=== PATIENT | male | born 1985 | race Caucasian/White ===

== ENCOUNTER 2021-10-17 08:17 | Outpatient (REF) | payer OTHER, SELFPAY ==
[2021-10-17 12:24] LABS: Alanine Aminotransferase 19 U/L (0-40); Albumin Level 4.2 g/dL (3.5-5.0); Alkaline Phosphatase 86 U/L (39-117); Anion Gap 12 (12-20); Aspartate Amino Transferase 14 U/L (5-37); Bilirubin Total 0.8 mg/dL (0.0-1.0); Blood Urea Nitrogen 7 mg/dL (9-16); Carbon Dioxide 25 mmol/L (22-29); Chloride 104 mmol/L (96-108); Cholesterol 128 mg/dL; Estimated Glomerular Filt Rate > 60; Glucose Fasting 101 mg/dL (60-99); HDL Cholesterol 28 mg/dL; LDL Cholesterol Calculated 72 mg/dl; Sodium 137 mmol/L (135-145); TSH reflex Free T4 2.31 uIU/mL (0.32-4.0); Total Protein 7.3 g/dL (6.5-8.0); Triglycerides 142 mg/dL
== END 2021-10-17 08:18 | disposition home or self-care (01) ==
LOC: HO.HMGCLDS 08:17
PROVIDERS: PCP Nurse Practitioner Family; Visit Provider Nurse Practitioner Family
DX: Z00.00 Encounter for general adult medical examination without abnormal findings (principal)
CPT/HCPCS: 36415; 80053; 80061; 84443

== ENCOUNTER 2022-01-02 12:48 | Emergency (ER) | payer OTHER, SELFPAY ==
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
[2022-01-02 13:07] VITALS: BP 136/80; PULSE 113; O2SAT 99
[2022-01-02 13:59] VITALS: BP 138/85; PULSE 113; RESP 18; TEMP 37.2; O2SAT 98; BMI 32.8
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
[2022-01-02] MEDS: Ibuprofen 600 MG TABLET PO (15:47)
[2022-01-02] MEDS: Diphth,Pertus(ACell),Tet Adult 0.5 ML SYRINGE IM (15:48)
== END 2022-01-02 16:09 | disposition home or self-care (01) ==
PROVIDERS: Emergency Provider Emergency Medicine; PCP Nurse Practitioner Family
DX: S60.221A Contusion of right hand, initial encounter (principal); S60.511A Abrasion of right hand, initial encounter; V47.5XXA Car driver injured in collision with fixed or stationary object in traffic accident, initial encounter; Y93.89 Activity, other specified; Y92.411 Interstate highway as the place of occurrence of the external cause; Y99.8 Other external cause status
CPT/HCPCS: 73110; 73130; 90471; 90715; 99284

== ENCOUNTER 2023-08-05 15:33 | Outpatient (AMB) | payer OTHER, SELFPAY ==
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
[2023-08-05 16:32] VITALS: BP 118/76; PULSE 68; O2SAT 98; BMI 23.9
== END 2023-08-06 15:12 | disposition home or self-care (01) ==
LOC: HO.HMGC 15:33
PROVIDERS: PCP Nurse Practitioner Family; Visit Provider Nurse Practitioner Family
DX: Z00.00 Encounter for general adult medical examination without abnormal findings (principal); F41.9 Anxiety disorder, unspecified; F32.A Depression, unspecified
CPT/HCPCS: 96127; 99395

== ENCOUNTER 2024-06-02 09:30 | Emergency (ER) | payer OTHER, SELFPAY ==
--- NOTE | ~2024-06-02 | CT_ITS ---
EXAMINATION: CT ANGIOGRAM OF THE CHEST WITH AND WITHOUT CONTRAST (CT PULMONARY ANGIOGRAM FOR PE) CLINICAL INFORMATION: chest pain, leg swelling COMPARISON: No pertinent prior studies are available for comparison. TECHNIQUE: Prior to contrast administration, noncontrast localization images were obtained. Subsequently, multidetector volumetric imaging was performed from the thoracic inlet to the pubic symphysis through the chest, abdomen, and pelvis following the administration of 70 mL Omnipaque 350 intravenous contrast. No contrast reaction reported Sagittal, coronal, and MIP oblique sagittal (through the chest only) reformatted images were obtained on the CT workstation, uploaded to PACS, and reviewed. This CT examination was performed using dose optimization techniques as appropriate, variously including the following: *Automated exposure control *Adjustment of mA and/or kV according to patient size (this includes techniques or standardized protocols for targeted exams where dose is matched to indication/reason for exam; i.e. extremities or head) *Use of iterative reconstruction technique Total exam dose-length product: 342 mGy-cm FINDINGS: QUALITY OF STUDY/CONTRAST BOLUS: Suboptimal. PULMONARY ARTERIES: No central or segmental pulmonary emboli. THORACIC AORTA: No aneurysm or dissection. LUNG: A few tiny micronodules are seen, none larger than 3 mm (see bello images) No focal consolidation or concerning nodules/masses. PLEURA: No pleural effusion or pneumothorax. MEDIASTINUM: Normal heart size. No pericardial effusion. No hilar or mediastinal lymphadenopathy. No evidence of septal bowing or right heart strain. CHEST WALL/AXILLA: No axillary or internal mammary lymphadenopathy. OSSEOUS STRUCTURES: No acute or suspicious osseous abnormality. VISUALIZED ABDOMEN: There is a small hiatal hernia. The spleen is enlarged. The liver is likely enlarged as well although cannot be assessed. Small hiatal hernia is present. No reflux of contrast into the IVC to suggest elevated right heart pressure. CT/CT angio chest PE protocol IMPRESSION: 1. No evidence of pulmonary emboli. Study is somewhat limited secondary to poor bolus. 2. VTE: negative. 3. A few tiny micronodules are seen, none larger than 3 mm (see bello images) No focal consolidation or concerning nodules/masses. Fleischner guidelines were followed. Electronically signed by: Miki Sutton MD 06/02/2024 01:42 PM EDT
--- NOTE | 2024-06-02 09:36 | ECG_ITS ---
Test Reason : chest pain Blood Pressure : / mmHG Vent. Rate : 096 BPM Atrial Rate : 096 BPM P-R Int : 152 ms QRS Dur : 092 ms QT Int : 346 ms P-R-T Axes : -02 -01 008 degrees QTc Int : 437 ms Normal sinus rhythm Cannot rule out Inferior infarct , age undetermined Abnormal ECG No previous ECGs available Referred By: Luisa Saba Electronically Signed By:BETH ALCANTAR
--- NOTE | 2024-06-02 09:41 | ED.CHESTPAIN ---
HPI - Chest Pain General Chief Complaint: Chest Pain Stated Complaint: CP X30 MIN,SOB PER EMS Source: patient and EMS Mode of arrival: EMS Limitations: no limitations History of Present Illness ED Provider: GHAZAL HPI narrative: 39 yo male with PMH of GERD, IVDA abuse last used 2 weeks ago on 120mg methadone daily did self dose today, [facility], states he has a spinal cyst unsure where that no one can treat or correct after seeing multiple specialist, leg swelling but no hx of DVT though told EMS he had a history of blood clots, anxiety and depression who comes in with c/o paroxysmal episodes of chest pain and his lungs deflate. He notes this started two days ago at rest. He gets severe sternal chest pain and then he cannot breathe. EMS states the story was all over the place but they felt his O2 sat was 85% so they put him on NRB we took him off and he was 100% on RA. The patient denies cough, fevers, chills, sick contacts. He states this has never happened before. MD complaint: chest pain Onset (ago): day(s) (2) Timing of current episode: episodic Prior episodes: No Onset: during rest Pain location: substernal Pain radiation: none Severity: severe Quality: tightness Relieving factors: nothing Exacerbating factors: movement and stress Context: recent immobilization (states he doesn't move much because of his spinal cyst but wears compressive stockings) Associated symptoms: dyspnea and sense of impending doom Treatment prior to arrival: oxygen Related Data Home Medications ?Medication ?Instructions ?Recorded ?Confirmed methadone .Route 08/05/23 08/05/23 sildenafil 100 mg tablet (Viagra) 100 mg PO DAILY PRN 08/05/23 08/05/23 Previous Rx's ?Medication ?Instructions ?Recorded ibuprofen 800 mg tablet 800 mg PO Q8H PRN pain #14 tabs 01/02/22 alprazolam 1 mg tablet 1 mg PO BID PRN anxiety 30 days 04/05/24 #60 tabs pantoprazole 40 mg tablet,delayed 40 mg PO DAILY 90 days #90 tabs 05/11/24 release Allergies Allergy/AdvReac Type Severity Reaction Status Date / Time No Known Allergies Allergy Verified 06/02/24 09:45 [No Known Allergies*] Review of Systems Review of Systems: Constitutional : No Weight loss, No Fever, No Chills ENT/Mouth : No sore throat, No Rhinorrhea Eyes: No Eye Pain, No Swelling Cardiovascular : pos Chest Pain, pos SOB, no Dyspnea on Exertion, No Orthopnea, No Edema, No Palpitations Respiratory : No Cough, No Sputum Gastrointestinal : pos Nausea, No Vomiting, No Diarrhea, No abdominal Pain, No Hematochezia, No Melena Genitourinary : No Dysuria, No Urinary Frequency Musculoskeletal : No joint pain, No Myalgias, No Joint Swelling Skin : No Skin Lesions, No rash Neuro : No Weakness, No Numbness, No Dizziness, No Headache Psych : pos Anxiety/Panic, No Depression Heme/Lymph: No Bruising, No Lymphadenopathy Endocrine : No Polyuria, No Polydipsia All other systems reviewed and are negative [facility] Past Medical History Attestation statement: The following information was validated with the patient. Source: old records reviewed Medical History Anxiety and depression Methadone dependence Back pain Surgical History H/O right wrist surgery S/P correction of deviated nasal septum History of appendectomy Family History Family History Father No problems noted. Mother Anxiety Fibromyalgia Social History Social History Housing: Apartment Patient Tobacco Use Status: Former Tobacco user e-Cigarette/Vaping Use: Never Used Advance Directives: No Advance Directives Information Provided: Yes Do you have a plan to hurt others: No Plan service: Yes Current occupational status: unemployed Cognitive needs: No Hearing needs: No Vision needs: No Physical Exam Vital Signs: Vital Signs: Last Vital Signs Temp 97.9 F 06/02/24 09:55 Pulse 97 06/02/24 09:55 Resp 15 06/02/24 09:55 BP 133/85 06/02/24 09:55 Pulse Ox 98 06/02/24 09:55 O2 Del Method Room Air 06/02/24 09:55 BMI result Body Mass Index 33.7 Appearance: Alert. Oriented X3. Mild acute distress. Hyperventilating, very anxious Eyes: Pupils equal, round and reactive to light. ENT: Pharynx normal. Neck: Normal inspection. Neck supple. CVS: Normal heart rate and rhythm. Pulses normal. Respiratory: No respiratory distress. Breath sounds normal. Abdomen: Soft and nontender. Skin: Skin warm and dry. Normal skin color. Normal skin turgor. Extremities: No lower extremity edema. No calf ttp Neuro: Oriented X 3. No motor deficit. No sensory deficit. Medications Administered Discontinued Medications Generic Name Dose Route Start Last Admin Trade Name Freq PRN Reason Stop Dose Admin Iohexol 65 ml 06/02/24 12:03 06/02/24 12:04 Iohexol 350 Mg/Ml 100 Ml Infus..Btl IV 06/02/24 12:04 65 ml ONCE ONE Administration Lorazepam 2 mg 06/02/24 09:36 06/02/24 09:52 Lorazepam 2 Mg/Ml Vial IVPUSH 06/02/24 09:37 2 mg ONCE ONE Administration Medical Decision Making Medical Decision Making [facility] Narrative: 39 yo male with PMH of GERD, IVDA abuse last used 2 weeks ago on 120mg methadone daily did self dose today, [facility], states he has a spinal cyst here with c/o anxiety, dyspnea, chest pain - he has no ACS risk factors, he is PERC negative but given sedentary lifestyle CTA ordered, IV ativan for severe anxiety he is not hypoxic here. At this time troponin x 2, EKG, inflammatory markers for infection ordered though no fevers, cough atypical for endocarditis, CTA for VTE Differential Diagnosis Differential Diagnoses: The differential diagnosis associated with the presentation includes anxiety, VTE, MSK pain Admission/Observation Consideration of admission/observation: Escalation of care including admission/observation considered CTA neg for PE/dissection trop neg x 2 resolved with ativan stable for DC Lab Data [facility] Lab Attestation statement: I reviewed the patient's lab results. 06/02/24 09:50 06/02/24 10:44 Labs: Lab Results 06/02/24 06/02/24 06/02/24 Range/Units 09:49 09:50 10:44 WBC 5.5 (4.8-10.8) X10*3/uL RBC 6.11 H (4.60-5.80) X10*6/uL Hgb 13.6 L (14.0-18.0) g/dl Hct 43.5 (42.0-52.0) % MCV 71.2 L (80.0-98.0) fL MCH 22.3 L (27.0-33.0) pg MCHC 31.3 (31.0-36.0) g/dl RDW 20.1 H (11.0-16.0) % Plt Count 277 (160-400) X10*3/uL MPV 9.0 L (9.4-12.4) fL Immature Gran % (Auto) 0.2 (0.0-0.4) % Neut % (Auto) 71.3 (45-73) % Lymph % (Auto) 19.1 L (20-40) % Gregory % (Auto) 6.9 (2-11) % Eos % (Auto) 2.0 (0-4) % Baso % (Auto) 0.5 (0-2) % Lymph # (Auto) 1.1 L (1.2-4.9) X10*3/uL Gregory # (Auto) 0.4 (0.1-1.2) X10*3/uL Eos # (Auto) 0.1 (0.0-0.4) X10*3/uL Baso # (Auto) 0.0 (0.0-0.2) X10*3/uL Abs Immat Gran (auto) 0.01 (0.00-0.03) X10*3/uL Absolute Neuts (auto) 3.9 (2.0-8.3) x10*3/uL Absolute Nucleated RBC 0.000 (0.0-0.012) X10*3/uL Nucleated RBC % (auto) 0.0 (0.0-0.2) /100WBC ESR 1 (0-15) MM/HR Sodium 138 (135-145) mmol/L Potassium 3.8 (3.3-5.1) mmol/L Chloride 106 (96-108) mmol/L Carbon Dioxide 26 (22-29) mmol/L Anion Gap 9 L (12-20) BUN 7 L (9-16) mg/dL Creatinine 1.16 (0.5-1.4) mg/dL Estim Creat Clear Calc 117.2 Estimated GFR > 60 Random Glucose 106 (60-115) mg/dL Calcium 9.4 (8.4-10.2) mg/dL Magnesium 1.9 (1.6-2.6) mg/dL Total Bilirubin 0.9 (0.0-1.0) mg/dL Direct Bilirubin 0.3 (0.0-0.5) mg/dL AST 15 (5-37) U/L ALT 19 (0-40) U/L Alkaline Phosphatase 81 (39-117) U/L Troponin I High Sens < 2.7 (<3.5-35.0) ng/L C-Reactive Protein 0.29 (< or = 0.50) mg/dL B-Natriuretic Peptide < 10 (<100) pg/mL Total Protein 7.1 (6.5-8.0) g/dL Albumin 4.2 (3.5-5.0) g/dL 06/02/24 Range/Units 12:58 WBC (4.8-10.8) X10*3/uL RBC (4.60-5.80) X10*6/uL Hgb (14.0-18.0) g/dl Hct (42.0-52.0) % MCV (80.0-98.0) fL MCH (27.0-33.0) pg MCHC (31.0-36.0) g/dl RDW (11.0-16.0) % Plt Count (160-400) X10*3/uL MPV (9.4-12.4) fL Immature Gran % (Auto) (0.0-0.4) % Neut % (Auto) (45-73) % Lymph % (Auto) (20-40) % Gregory % (Auto) (2-11) % Eos % (Auto) (0-4) % Baso % (Auto) (0-2) % Lymph # (Auto) (1.2-4.9) X10*3/uL Gregory # (Auto) (0.1-1.2) X10*3/uL Eos # (Auto) (0.0-0.4) X10*3/uL Baso # (Auto) (0.0-0.2) X10*3/uL Abs Immat Gran (auto) (0.00-0.03) X10*3/uL Absolute Neuts (auto) (2.0-8.3) x10*3/uL Absolute Nucleated RBC (0.0-0.012) X10*3/uL Nucleated RBC % (auto) (0.0-0.2) /100WBC ESR (0-15) MM/HR Sodium (135-145) mmol/L Potassium (3.3-5.1) mmol/L Chloride (96-108) mmol/L Carbon Dioxide (22-29) mmol/L Anion Gap (12-20) BUN (9-16) mg/dL Creatinine (0.5-1.4) mg/dL Estim Creat Clear Calc Estimated GFR Random Glucose (60-115) mg/dL Calcium (8.4-10.2) mg/dL Magnesium (1.6-2.6) mg/dL Total Bilirubin (0.0-1.0) mg/dL Direct Bilirubin (0.0-0.5) mg/dL AST (5-37) U/L ALT (0-40) U/L Alkaline Phosphatase (39-117) U/L Troponin I High Sens < 2.7 (<3.5-35.0) ng/L C-Reactive Protein (< or = 0.50) mg/dL B-Natriuretic Peptide (<100) pg/mL Total Protein (6.5-8.0) g/dL Albumin (3.5-5.0) g/dL Independent Interpretation I performed an independent interpretation of an: EKG and CT Scan (no dissection/VTE) Interpretation: Rate: 96 Rhythm: NSR [place]: left Normal P waves. Normal [place]. Normal QRS complex. ST T wave : normal no JAMEE qTC: 437 prior studies: no acute ischemia The study has been interpreted contemporaneously by me. . Radiology Impression Discussion of test interpretation with radiology: I have reviewed the radiologist's reading. Independent Historian Clinical information obtained from an independent historian. History obtained from or confirmed by: EMS External Record Review External record reviewed: Office record Critical Care Time Critical Care Time Critical Care Time: Yes Total Critical Care Time: 35 Attestation: IV ativan, repeat assessment I attest to this time spent taking care of the patient Discharge Plan Discharge Clinical Impression: Atypical chest pain, Acute anxiety Patient Disposition: Home, Self-Care Instructions: Chest Pain (ED), Anxiety (ED) Additional Instructions: labs reassuring today heart tests negative today x 2 no blood clot, no tearing of aorta work up negative for pneumonia please follow up with your doctor - micronodules repeat CT scan in 1 year return for any worsening symptoms or concerns CT/CT angio chest PE protocol IMPRESSION: 1. No evidence of pulmonary emboli. Study is somewhat limited secondary to poor bolus. 2. VTE: negative. 3. A few tiny micronodules are seen, none larger than 3 mm (see bello images) No focal consolidation or concerning nodules/masses Prescriptions: No Action alprazolam 1 mg tablet 1 mg PO BID PRN (Reason: anxiety) 30 Days Qty: 60 1RF pantoprazole 40 mg tablet,delayed release (DR/EC) 40 mg PO DAILY 90 Days Qty: 90 1RF ibuprofen 800 mg tablet 800 mg PO Q8H PRN (Reason: pain) Qty: 14 0RF methadone 120 mg .Route Rx Instructions: per pt sildenafil [Viagra] 100 mg tablet 100 mg PO DAILY PRN Rx Instructions: administer 30 minutes to 4 hours before activity Print Language: Kinyarwanda
[2024-06-02 09:43] VITALS: BP 132/84; BP 133/73; PULSE 92; PULSE 94; RESP 16; TEMP 36.6; O2SAT 94; O2SAT 95; BMI 33.7
[2024-06-02] MEDS: LORazepam 2 MG/ML VIAL IVPUSH (09:52)
[2024-06-02 09:55] VITALS: BP 133/85; PULSE 97; RESP 15; TEMP 36.6; O2SAT 98
[2024-06-02 09:55] LABS: MANUAL DIFF FLAG NO
[2024-06-02 09:56] LABS: Basophils Percent Auto 0.5 % (0-2); Eosinophils Absolute Auto 0.1 X10*3/uL (0.0-0.4); Hematocrit 43.5 % (42.0-52.0); Hemoglobin 13.6 g/dl (14.0-18.0); Imm Gran Abs Auto 0.01 X10*3/uL (0.00-0.03); Imm Gran Pct Auto 0.2 % (0.0-0.4); Lymphocytes Absolute Auto 1.1 X10*3/uL (1.2-4.9); Lymphocytes Percent Auto 19.1 % (20-40); Mean Corpuscular HGB Conc 31.3 g/dl (31.0-36.0); Mean Corpuscular Hemoglobin 22.3 pg (27.0-33.0); Mean Corpuscular Volume 71.2 fL (80.0-98.0); Monocytes Absolute Auto 0.4 X10*3/uL (0.1-1.2); Monocytes Percent Auto 6.9 % (2-11); Neutrophils Absolute Auto 3.9 x10*3/uL (2.0-8.3); Neutrophils Percent Auto 71.3 % (45-73); Platelet Count 277 X10*3/uL (160-400); Red Blood Count 6.11 X10*6/uL (4.60-5.80); Red Cell Distribution Width 20.1 % (11.0-16.0); White Blood Count 5.5 X10*3/uL (4.8-10.8)
[2024-06-02 10:22] LABS: Troponin-I High Sensitivity < 2.7 ng/L (<3.5-35.0)
[2024-06-02 10:25] LABS: B Type Natriuretic Peptide < 10 pg/mL (<100)
[2024-06-02 10:35] LABS: Erythrocyte Sedimentation Rate 1 MM/HR (0-15)
--- NOTE | 2024-06-02 10:50 | PC.NURSE ---
Pt BIBA from home for sudden onset of CP/SOB. Per pt he has a hx of these episodes. Per EMS pt desat to 80%, upon arrival 95% RA. Upon arrival pt hyperventilating and tachycardic on monitoring engineer, HR increased to 140s. 20g IV placed in right ac, 2mg IV Ativan given. Hyperventilation and tachycardia has since resolved. Pt HR on monitor 80-85. Pt verbalizes decrease in pain/anxiousness. A/ox4, lung sounds cta bilaterally, no increased wob/sob since ativan given, s1 and s2 heard, NSR on the monitoring engineer, abdomen soft, non-tender. Vital signs updated, plan for CT of chest, call brush within reach, all needs met at this time.
[2024-06-02 11:21] LABS: Alanine Aminotransferase 19 U/L (0-40); Albumin Level 4.2 g/dL (3.5-5.0); Alkaline Phosphatase 81 U/L (39-117); Anion Gap 9 (12-20); Aspartate Amino Transferase 15 U/L (5-37); Bilirubin Direct 0.3 mg/dL (0.0-0.5); Bilirubin Total 0.9 mg/dL (0.0-1.0); Blood Urea Nitrogen 7 mg/dL (9-16); C Reactive Protein 0.29 mg/dL (< or = 0.50); Calcium 9.4 mg/dL (8.4-10.2); Carbon Dioxide 26 mmol/L (22-29); Chloride 106 mmol/L (96-108); Creatinine Clr Calc Pharmacy 117.2; Estimated Glomerular Filt Rate > 60; Glucose Random 106 mg/dL (60-115); Magnesium 1.9 mg/dL (1.6-2.6); Potassium 3.8 mmol/L (3.3-5.1); Sodium 138 mmol/L (135-145); Total Protein 7.1 g/dL (6.5-8.0)
[2024-06-02] MEDS: iohexoL 350 MG/ML 100 ML INFUS..BTL 65 ML IV (12:04)
[2024-06-02 13:34] LABS: Troponin-I High Sensitivity < 2.7 ng/L (<3.5-35.0)
[2024-06-02 14:37] VITALS: BP 133/80; PULSE 84; RESP 20; TEMP 36.6; O2SAT 98
== END 2024-06-02 14:37 | disposition home or self-care (01) ==
PROVIDERS: Emergency Provider Emergency Medicine; PCP Nurse Practitioner Family
DX: R07.89 Other chest pain (principal); R06.02 Shortness of breath; R60.0 Localized edema; R94.31 Abnormal electrocardiogram [ECG] [EKG]; F41.1 Generalized anxiety disorder; Z79.899 Other long term (current) drug therapy
CPT/HCPCS: 36415; 71275; 80048; 80076; 83735; 83880; 84484; 85025; 85652; 86140; 93005; 96374; 99284; 99285; J2060; Q9967

== ENCOUNTER 2024-09-27 10:22 | Outpatient (AMB) | payer OTHER, SELFPAY ==
[2024-09-27 10:28] VITALS: BP 130/78; PULSE 72; O2SAT 94; BMI 34.4
--- NOTE | 2024-09-27 10:28 | A.OFFPC_ITS ---
Vital Signs 09/27/24 10:28 Height 6 ft 2 in Weight 268 lb BMI 34.4 BP 130/78 Blood Pressure Location Lt brachial Position Sitting Pulse 72 Pulse Source Pulse Oximeter Pulse Oximetry (%) 94 Oxygen Delivery Method Room Air Intake Visit Reasons: Annual PE Allergies No Known Allergies [No Known Allergies*] Allergy (Verified 09/27/24 10:29) Medication List - Last Reconciled 09/27/24 by CADENCE Burns- alprazolam 1 mg PO BID PRN 30 days [methadone per pt ] pantoprazole 40 mg PO DAILY 90 days sildenafil (Viagra) 100 mg PO DAILY PRN Tobacco use date assessed: 09/27/24 Dental Screening Dental Screen Date: 09/27/24 Did you have a dental visit in the last 12 months?: Yes Did you have a dental problem in the last 6 months where you did not have access to dental care?: No Was dental information given to patient?: Patient has dentist HPI Annual PE HPI Details History of Present Illness The patient is a 39-year-old male presenting with increased anxiety. The anxiety has worsened, potentially due to a lapse in his alprazolam medication, which he has been out of for several days. He regularly [facility] up with the [facility] and has a therapist, but not a psychiatrist. There is a recent increase in anxiety and depression; however, the patient denies any suicidal or homicidal ideation. Additionally, he has upper right quadrant abdominal discomfort, [facility] which [facility] and [facility], hepatic steatosis, and a slightly enlarged spleen. Pulmonary nodules have also been observed, with ongoing follow- up through [facility], according to pt. He also is seen at the methadone clinic. There is no tenderness noted in the abdomen currently, according to the physical exam ination. Health Maintenance - Patient refuses flu vaccination - Plans to obtain fasting labs in the [facility] future Social History - Seen regularly at the [facility] - Refuses flu vaccination Review of Systems - General: Denies chest pain, denial of shortness of breath - Abdominal: Reports right upper quadran t discomfort Physical Exam General: Cooperative, healthy appearing, comfortable, no acute distress and well developed Orientation: Patient oriented x3 Limitations: No limitations Head: Normal to inspection Ears: Hearing grossly normal bilaterally Nose: Slight abrasion to the bridge of his nose Face and sinus: Normal facial exam Eyes: Appearance normal, both eyes and all related structures Neck: Normal visual inspection and Yes full ROM Respiratory: Normal respiratory effort and able to speak in complete sentences. Clear to auscultation bilaterally Cardiovascular: Regular rate and rhythm. Normal S1 and S2 GI: Normal to inspection. Soft to palpation and nontender. Reports abdominal discomfort in the right upper quadrant, with known gallstones, fatty liver, and slightly enlarged spleen Skin: No rashes or lesions noted Neuro: Patient oriented x3 Extremities: Normal to inspection Results Plan - Prescribe alprazolam refill today to a ddress the increased anxiety symptomatology. - Monitor anxiety and depression closely with ongoing therapy sessions; consider evaluation by a psychiatrist if symptoms persist or worsen. - Continue surveillance of gallstones, f atty liver, enlarged spleen, and pulmonary nodules through [facility] follow-[facility]. - Encourage the patient to complete fast ing labs as planned for further assessment. Patient was informed and verbally consented to the use of an ambient scribe for clinic note documentation during this visit. Discussion Notes I discussed with the patient the management of anxiety by ensuring that he resumes his alprazolam prescription today. We reviewed the importance of maintaining regular therapy sessions and considered referral to a psychiatrist should his symptoms not improve. I explained the necessity of monitoring his abdominal and pulmonary issues with the [facility], including the identified gallstones, fatty liver, enlarged spleen, and pulmonary nodules. We talked about the future fasting labs to assess general health markers. The patient was advised of the benefits of flu vaccination, but he declined. We also confirmed no current suicidal or homicidal thoughts were present. Patient Instructions - Take the prescribed alprazolam as dire cted. - Continue regular therapy sessions for anxiety and depression. - Follow up for regular assessments with the [facility]. - Complete the fasting labs that [facility] has planned. - Monitor abdominal symptoms and seek ca re if they worsen. - Return if experiencing any concerning new symptoms such as chest pain or shortness of breath. [facility] Medical History (Updated 09/27/24 @ 10:50 by BOB Burns) PTSD (post-traumatic stress disorder) Anxiety and depression Methadone dependence Back pain Surgical History H/O right wrist surgery S/P correction of deviated nasal septum History of appendectomy Family History Father No problems noted. Mother Anxiety Fibromyalgia Social History Housing: Apartment Patient Tobacco Use Status: Former Tobacco user e-Cigarette/Vaping Use: Never Used service: Yes Current occupational status: unemployed Cognitive needs: No Hearing needs: No Vision needs: No Questionnaire PHQ-9 Over the last 2 weeks, how often have you been bothered by any of the following problems? 1. Little interest or pleasure in doing things: more than half the days 2. Feeling down, depressed, or hopeless: more than half the days 3. Trouble falling or staying asleep, or sleeping too much: more than half the days 4. Feeling tired or having little energy: more than half the days 5. Poor appetite or overeating: several days 6. Feeling bad about yourself - or that you are a failure or have let yourself or your family down: several days 7. Trouble concentrating on things, such as reading the newspaper or watching television: not at all 8. Moving or speaking so slowly that other people could have noticed. Or the opposite - being so fidgety or restless that you have been moving around a lot more than usual: not at all 9. Thoughts that you would be better off or of hurting yourself in some way: not at all Total score: 10 Depression Screening Interpretation: Positive (denies any si or hi) Depression Screening Follow-up: Existing condition and In treatment Depression Screening Done: Yes 14864 - PHQ-9 Billing: Yes Source: Developed by Drs. Hang Wilson, Corazon Rajput, Hemant Mccurdy and colleagues, with an educational ana from [facility]. Thrive Questionnaire Date Thrive assessed: 09/27/24 I am a: Patient What is your living situation today?: I have a steady place to live Within the past 12 months, did the food you bought not last and you didn't have the money to get more?: Sometimes True Within the past 12 months, did you worry whether your food would run out before you got money to buy more?: Sometimes True Do you have trouble paying for medicines?: No Do you have trouble getting transportation to medical appointments?: No Do you have trouble paying your heating and electricity bill?: No Do you have trouble taking care of your child, family member or friend?: No Do you have trouble with day-to-day activities such as bathing, preparing meals, shopping, managing finances, etc.?: I choose not to answer this question Are you currently unemployed and looking for a job?: Yes Are you interested in more education?: I choose not to answer this question Please select the resources that you would like help with: None Currently or been in a relationship where the following occur: No concerns reported THRIVE Score: 2 AUDIT C Alcohol Use Questionnaire (AUDIT-C) 1. How often do you have a drink containing alcohol?: Never 3. How often do you have six or more drinks on one occasion?: Never Total Score: 0 Score Reviewed/Action Taken: Yes HOLDEN-7 AMB Questionnaire HOLDEN-7 Date HOLDEN - 7 assessed: 09/27/24 Feeling nervous, anxious, or on edge: 3 = Nearly every day Not being able to stop or control worryin = Nearly every day Worrying too much about different things: 3 = Nearly every day Trouble relaxin = Nearly every day Being so restless that it is hard to sit still: 3 = Nearly every day Becoming easily annoyed or irritable: 3 = Nearly every day Feeling afraid as if something awful might happen: 3 = Nearly every day Total HOLDEN-7 score (0-4 normal; 5-9 mild; 10-14 moderate; 15-21 severe): 21 Source: Developed by Drs. Hang Wilson, Corazon Rajput, Hemant Mccurdy and colleagues, with an educational ana from [facility]. HOLDEN-7 Assessment Billing HOLDEN-7 Assessment Tool: HOLDEN-7 Assessment 37764 (has a therapist, needs a refill of his alprazolam, denies any si or hi) Physical exam (Primary Care) Vital Signs: Last Vital Signs Pulse 72 09/27/24 10:28 BP 130/78 09/27/24 10:28 Pulse Ox 94 09/27/24 10:28 Oxygen Delivery Method Room Air 09/27/24 10:28 BMI result Body Mass Index 34.4 Tobacco/Smoking Status: Tobacco use Status Tobacco use date assessed 09/27/24 09/27/24 10:31 Patient Tobacco Use Status Former Tobacco user 09/27/24 10:31 e-Cigarette/Vaping Use Never Used 09/27/24 10:31 PHQ-9: PHQ-9 Score PHQ-9: Total score 10 09/27/24 10:31 Depression Screening Interpretation: Positive (denies any si or hi) Depression Screening Follow-up: Existing condition and In treatment Thrive Assessment: Date of Thrive Assessment Date Thrive assessed 09/27/24 09/27/24 10:31 Currently or been in a relationship where the following occur: No concerns reported Coding Level of Care Code Est Pt Prev Care 18-39y(07722) Diagnoses Physical exam Z00.00 Anxiety and depression F41.9; F32.A Additional Codes PHQ-9 - 20569 - PHQ-9 Billing: Yes ([id number]) HOLDEN-7 Assessment Billing - HOLDEN-7 Assessment Tool: HOLDEN-7 Assessment 12772 ([id number]) Assessment & Plan Assessment & Plan (1) Physical exam: Code(s): Z00.00 - Encounter for general adult medical examination without abnormal findings Category: Medical (2) Anxiety and depression: Code(s): F41.9 - Anxiety disorder, unspecified; F32.A - Depression, unspecified Category: Medical Plan . Orders: Orders UA CC w/rflx Micro + Cult Today Z00.00 - Encounter for general adult medical examination without abnormal findings Complete Blood Count Auto Diff Today Z00.00 - Encounter for general adult medical examination without abnormal findings Comprehensive Remlap. Panel Fast Today Z00.00 - Encounter for general adult me dical examination without abnormal findings TSH reflex Free T4 Today Z00.00 - Encounter for general adult medical examination without abnormal findings Lipid Panel Today Z00.00 - Encounter for general adult medical examination without abnormal findings Medications: Refilled 2 alprazolam 1 mg PO BID PRN 60 tabs 4RF anxiety 30 days
== END 2024-09-27 10:54 | disposition home or self-care (01) ==
PROVIDERS: PCP Nurse Practitioner Family; Visit Provider Nurse Practitioner Family
DX: Z00.00 Encounter for general adult medical examination without abnormal findings (principal); F41.9 Anxiety disorder, unspecified; F32.A Depression, unspecified

== ENCOUNTER → 2024-09-27 10:22 | Outpatient (BNVA) | payer OTHER, SELFPAY | PROVIDERS: PCP Nurse Practitioner Family; Visit Provider Nurse Practitioner Family | DX: Z00.00 Encounter for general adult medical examination without abnormal findings (principal); F41.9 Anxiety disorder, unspecified; F32.A Depression, unspecified | CPT/HCPCS: 96127 ==

== ENCOUNTER 2024-10-13 14:22 | Inpatient (IN) | payer OTHER, SELFPAY ==
--- NOTE | ~2024-10-13 | US_ITS ---
EXAMINATION: US ABDOMEN LIMITED CLINICAL INFORMATION: Right upper quadrant pain. Known gallstones. COMPARISON: None available. TECHNIQUE: Real-time imaging of the right upper quadrant abdominal viscera. FINDINGS: PANCREAS: Visualized portions are unremarkable. LIVER: The liver is normal in size. The liver contour is normal. There is diffuse increased liver parenchymal echogenicity, consistent with hepatic steatosis. No focal hepatic lesion. There is no intrahepatic biliary duct dilatation seen. GALLBLADDER: The gallbladder is distended. There are numerous intraluminal mobile gallstones. No significant wall thickening or pericholecystic fluid seen. Patient reported a positive sonographic Cerna's sign as per the technologist note. COMMON BILE DUCT: Normal in caliber measuring 0.2 cm in diameter. RIGHT KIDNEY: No hydronephrosis. No renal calculi or focal parenchymal lesions. The kidney measures 13.4 cm in maximum dimension. FREE FLUID: None. US/US abdomen limited IMPRESSION: 1. Distended gallbladder with intraluminal mobile gallstones. No wall thickening or pericholecystic fluid. The patient did report a positive sonographic Cerna sign as per the technologist note. Findings are equivocal for acute cholecystitis. 2. Echogenic liver suggesting hepatic steatosis. No focal lesion. 3. No biliary dilatation. Electronically signed by: Andres Morgan MD 10/13/2024 04:[address] [facility]
[2024-10-13 14:31] VITALS: BP 124/76; PULSE 101; RESP 20; TEMP 36.8; O2SAT 98; BMI 35.4
--- NOTE | 2024-10-13 14:37 | ED_ITS ---
HPI - Abdominal Pain General Chief Complaint: Abdominal Pain Stated Complaint: Out pt resp Time Seen by Provider: 10/13/24 14:34 Source: patient, RN notes reviewed and old records reviewed Mode of arrival: ambulatory History of Present Illness ED Provider: Meg Ward PA-C HPI narrative: 39-year-old male with a past medical history PTSD, anxiety, depression, methadone dependence, gallstones, presenting to the ED complaining of sudden onset RUQ abdominal pain, nausea, and diaphoresis. Pain described as stabbing with radiation to back. Admits symptoms are similar to prior/known gallstones. [facility] and is scheduled for [facility] consult in November. Denies vomiting, fever, dysuria/hematuria Related Data Home Medications ?Medication ?Instructions ?Recorded ?Confirmed methadone .Route 08/05/23 09/27/24 sildenafil 100 mg tablet (Viagra) 100 mg PO DAILY PRN 08/05/23 09/27/24 Previous Rx's ?Medication ?Instructions ?Recorded pantoprazole 40 mg tablet,delayed 40 mg PO DAILY 90 days #90 tabs 05/11/24 release alprazolam 1 mg tablet 1 mg PO BID PRN anxiety 30 days 09/27/24 #60 tabs Allergies Allergy/AdvReac Type Severity Reaction Status Date / Time No Known Allergies Allergy Verified 10/13/24 14:33 [No Known Allergies*] Review of Systems Review of Systems Yes all other systems are reviewed and are negative Constitutional: Reports as per [facility] Past Medical History Attestation statement: The following information was validated with the patient. Source: old records reviewed Medical History PTSD (post-traumatic stress disorder) Anxiety and depression Methadone dependence Back pain Surgical History H/O right wrist surgery S/P correction of deviated nasal septum History of appendectomy Family History Family History Father No problems noted. Mother Anxiety Fibromyalgia Social History Social History Housing: Apartment Patient Tobacco Use Status: Former Tobacco user Smoked in Last 30 Days: No e-Cigarette/Vaping Use: Never Used Use of substances other than those prescribed or required for medical reasons: No Advance Directives: No Advance Directives Information Provided: Yes service: Yes Current occupational status: unemployed Cognitive needs: No Hearing needs: No Vision needs: No Physical Exam ED Vital Signs: Vital Signs - 24 hr 10/13/24 14:31 Temperature 98.2 F Pulse Rate 101 H Respiratory Rate 20 Blood Pressure 124/76 Pulse Oximetry 98 Oxygen Delivery Method Room Air BMI result Body Mass Index 35.4 Const Other: Diaphoretic, appears uncomfortable General: cooperative and no acute distress Orientation/consciousness: patient oriented x3 Limitations: no limitations HENMT Head: Yes normal to inspection and Yes atraumatic Ears: hearing grossly normal bilaterally General nose exam: Normal external nose present Face and sinus: Yes normal facial exam Eyes General: appearance normal, both eyes and all related structures EOM: EOMs intact bilaterally Neck Neck: Yes normal visual inspection and Yes no meningeal signs Resp Effort & Inspection: normal respiratory effort and no respiratory distress Auscultation: clear to auscultation bilaterally Cardio Rate: regular rate Heart sounds: S1 normal heart sound present and S2 normal heart sound present GI Inspection: Yes normal to inspection Palpation (GI): Soft to palpation, Tenderness to palpation present (GI) in the epigastrum, in the RUQ and at McBurney's point, no guarding and not rigid General: Yes CVA tenderness on the right Back/Spine/Pelvis Back: CVA tenderness Skin Rashes: no rashes Wounds: no wounds Neuro General: patient oriented x3, tone normal and no meningeal signs Cranial nerves: Yes CN's II-XII intact bilaterally Gait exam (Neuro): Normal gait present Extrem General: Yes normal to inspection Course Course Course Narrative: -no leukocytosis, H/H stable. Potassium mildly elevated to 5.3, slightly hemolyzed -AST 59 -1630--ED care transferred to [facility] pending ultrasound, UA, and dispo per results. Anticipate admission Reevaluation(s) Reevaluation #1: Patient received in sign-out at change of shift pending ultrasound and disposition. The patient's ultrasound has a positive Cerna's sign but no definitive evidence of cholecystitis. I discussed with Dr. Whitfield, surgery. Plan for OR tomorrow. He will admit the patient Time: 17:16 Medical Decision Making Medical Decision Making MDM Narrative: 39-year-old male with a past medical history PTSD, anxiety, depression, methadone dependence, gallstones, presenting to the ED complaining of sudden onset RUQ abdominal pain, nausea, and diaphoresis. On exam tachycardic likely from pain, appears uncomfortable, diaphoretic, abdomen soft with epigastric/RUQ and right CVAT. Concern for acute cholecystitis vs gallstones/biliary colic vs pancreatitis. Lower suspicion for acute ACS or dissection at this time. Lower suspicion for acute appendicitis/diverticulitis Plan: Labs, UA, ultrasound, IVF, pain control, re-evaluate. Low suspicion for severe sepsis at this time Please refer to course for remaining clinical decision making, interpretation of labs/imaging results, and discussions with consultants and/or family members. Differential Diagnosis Differential Diagnoses: The differential diagnosis associated with the presentation includes As above Admission/Observation Consideration of admission/observation: Escalation of care including admission/observation considered Lab Data [facility] Lab Attestation statement: I reviewed the patient's lab results. 10/13/24 14:51 10/13/24 14:51 Labs: Lab Results 10/13/24 10/13/24 Range/Units 14:51 16:29 WBC 7.6 (4.8-10.8) X10*3/uL RBC 6.34 H (4.60-5.80) X10*6/uL Hgb 13.7 L (14.0-18.0) g/dl Hct 44.9 (42.0-52.0) % MCV 70.8 L (80.0-98.0) fL MCH 21.6 L (27.0-33.0) pg MCHC 30.5 L (31.0-36.0) g/dl RDW 21.0 H (11.0-16.0) % Plt Count 313 (160-400) X10*3/uL MPV 9.6 (9.4-12.4) fL Immature Gran % (Auto) 0.3 (0.0-0.4) % Neut % (Auto) 71.5 (45-73) % Lymph % (Auto) 21.2 (20-40) % [place] % (Auto) 6.0 (2-11) % Eos % (Auto) 0.5 (0-4) % Baso % (Auto) 0.5 (0-2) % Lymph # (Auto) 1.6 (1.2-4.9) X10*3/uL [place] # (Auto) 0.5 (0.1-1.2) X10*3/uL Eos # (Auto) 0.0 (0.0-0.4) X10*3/uL Baso # (Auto) 0.0 (0.0-0.2) X10*3/uL Abs Immat Gran (auto) 0.02 (0.00-0.03) X10*3/uL Absolute Neuts (auto) 5.4 (2.0-8.3) x10*3/uL Absolute Nucleated RBC 0.000 (0.0-0.012) X10*3/uL Nucleated RBC % (auto) 0.0 (0.0-0.2) /100WBC PT 14.2 H (10.9-12.4) SEC INR 1.2 H (0.9-1.1) Sodium 141 (135-145) mmol/L Potassium 5.3 H D (3.3-5.1) mmol/L Chloride 108 (96-108) mmol/L Carbon Dioxide 25 (22-29) mmol/L Anion Gap 13 (12-20) BUN 8 L (9-16) mg/dL Creatinine 1.35 (0.5-1.4) mg/dL Estim Creat Clear Calc 103.2 Estimated GFR 59 Random Glucose 90 (60-115) mg/dL Calcium 9.5 (8.4-10.2) mg/dL Magnesium 2.2 (1.6-2.6) mg/dL Total Bilirubin 0.7 (0.0-1.0) mg/dL Direct Bilirubin 0.2 (0.0-0.5) mg/dL AST 59 H (5-37) U/L ALT 31 (0-40) U/L Alkaline Phosphatase 88 (39-117) U/L Total Protein 8.9 H (6.5-8.0) g/dL Albumin 4.5 (3.5-5.0) g/dL Lipase 10 (8-78) U/L Urine Color Dark Yellow Urine Appearance Clear Urine pH 6.0 (5.0-9.0) Ur Specific [place] 1.025 (1.005-1.025) Urine Protein 30 (1+) H (Neg-Trace) mg/dL Urine Glucose (UA) Negative (Negative) mg/dL Urine Ketones 15 (Negative) mg/dL Urine Blood Negative (Negative) Urine Nitrite Negative (Negative) Ur Leukocyte Esterase Negative (Negative) Urine RBC 0-2 (0-2) /HPF Urine WBC 0-5 (0-5) /HPF Ur Squamous Epith Cells 0-2 (0-2) /HPF Urine Bacteria None Seen (None Seen) Hyaline Casts 11-20 (0-2) /LPF Independent Interpretation I performed an independent interpretation of an: EKG (My interpretation EKG normal sinus rhythm rate of 84. MO interval 166. No significant change when compared to prior. No STEMI. ) and Ultrasound Radiology Impression Discussion of test interpretation with radiology: I have reviewed the radiologist's reading. External Record Review External record reviewed: Inpatient record, Office record, Outpatient record, Prior outpatient labs, Prior outpatient radiology, Primary care record and Outside ED record Tests considered The following testing was considered but not selected: As above Prescription Management I considered prescription management with: Pain Medication and Antibiotic Chronic Conditions Patient?s care impacted by: Other Social Determinants Patient?s care significantly limited by Social Determinants of Health including: Alcoholism and drug addiction in family and Other Social Determinant of Health Medications Administered Discontinued Medications Generic Name Dose Route Start Last Admin Trade Name Freq PRN Reason Stop Dose Admin Sodium Chloride 1,000 mls @ 999 mls/hr 10/13/24 14:45 10/13/24 16:27 Ns IV 10/13/24 15:45 Infused .Q1H1M KIM Infusion Morphine Sulfate 4 mg 10/13/24 14:42 10/13/24 14:56 Morphine Sulfate 4 Mg/Ml Cartridge IVPUSH 10/13/24 14:43 4 mg ONCE ONE Administration Protocol Morphine Sulfate 4 mg 10/13/24 15:43 10/13/24 16:34 Morphine Sulfate 4 Mg/Ml Cartridge IVPUSH 10/13/24 15:44 4 mg ONCE ONE Administration Protocol Ondansetron HCl 4 mg 10/13/24 14:42 10/13/24 14:54 Ondansetron Hcl 4 Mg/2 Ml Vial IVPUSH 10/13/24 14:43 4 mg ONCE ONE Administration Discharge Plan Discharge Clinical Impression: Abdominal pain, RUQ, Symptomatic cholelithiasis Patient Disposition: Admitted As Inpatient Prescriptions: No Action pantoprazole 40 mg tablet,delayed release (DR/EC) 40 mg PO DAILY 90 Days Qty: 90 1RF methadone 120 mg .Route Rx Instructions: per pt sildenafil [Viagra] 100 mg tablet 100 mg PO DAILY PRN Rx Instructions: administer 30 minutes to 4 hours before activity alprazolam 1 mg tablet 1 mg PO BID PRN (Reason: anxiety) 30 Days Qty: 60 4RF Print Language: French
--- NOTE | 2024-10-13 14:42 | ECG_ITS ---
Test Reason : CHEST PAIN Blood Pressure : */* mmHG Vent. Rate : 84 BPM Atrial Rate : 84 BPM P-R Int : 166 ms QRS Dur : 100 ms QT Int : 384 ms P-R-T Axes : 22 -12 8 degrees QTcB Int : 453 ms Normal sinus rhythm with sinus arrhythmia Normal ECG When compared with ECG of 02-Jun-2024 09:37, No significant change was found Referred By: Meg Ward Electronically Signed By: RADHA FRANCO
[2024-10-13] MEDS: 0.9 % Sodium Chloride 1,000 ML 999 ML IV (14:54)
[2024-10-13] MEDS: ondansetron HCL 4 MG/2 ML VIAL IVPUSH ×2 (14:54→23:04)
[2024-10-13 14:56] LABS: MANUAL DIFF FLAG NO
[2024-10-13] MEDS: Morphine Sulfate 4 MG/ML CARTRIDGE IVPUSH ×2 (14:56→16:34)
[2024-10-13 14:59] LABS: Basophils Percent Auto 0.5 % (0-2); Eosinophils Percent Auto 0.5 % (0-4); Hematocrit 44.9 % (42.0-52.0); Hemoglobin 13.7 g/dl (14.0-18.0); Imm Gran Abs Auto 0.02 X10*3/uL (0.00-0.03); Imm Gran Pct Auto 0.3 % (0.0-0.4); Lymphocytes Absolute Auto 1.6 X10*3/uL (1.2-4.9); Lymphocytes Percent Auto 21.2 % (20-40); Mean Corpuscular HGB Conc 30.5 g/dl (31.0-36.0); Mean Corpuscular Hemoglobin 21.6 pg (27.0-33.0); Mean Corpuscular Volume 70.8 fL (80.0-98.0); Mean Platelet Volume 9.6 fL (9.4-12.4); Monocytes Absolute Auto 0.5 X10*3/uL (0.1-1.2); Neutrophils Absolute Auto 5.4 x10*3/uL (2.0-8.3); Neutrophils Percent Auto 71.5 % (45-73); Platelet Count 313 X10*3/uL (160-400); Red Blood Count 6.34 X10*6/uL (4.60-5.80); White Blood Count 7.6 X10*3/uL (4.8-10.8)
[2024-10-13 15:03] LABS: INTERNATIONAL NORM RATIO 1.2 (0.9-1.1); Prothrombin Time 14.2 SEC (10.9-12.4)
[2024-10-13 15:28] LABS: Alanine Aminotransferase 31 U/L (0-40); Albumin Level 4.5 g/dL (3.5-5.0); Anion Gap 13 (12-20); Aspartate Amino Transferase 59 U/L (5-37); Bilirubin Direct 0.2 mg/dL (0.0-0.5); Bilirubin Total 0.7 mg/dL (0.0-1.0); Blood Urea Nitrogen 8 mg/dL (9-16); Calcium 9.5 mg/dL (8.4-10.2); Carbon Dioxide 25 mmol/L (22-29); Chloride 108 mmol/L (96-108); Creatinine Clr Calc Pharmacy 103.2; Estimated Glomerular Filt Rate 59; Glucose Random 90 mg/dL (60-115); Lipase 10 U/L (8-78); Magnesium 2.2 mg/dL (1.6-2.6); Potassium 5.3 mmol/L (3.3-5.1); Sodium 141 mmol/L (135-145); Total Protein 8.9 g/dL (6.5-8.0)
[2024-10-13 15:49] LABS: Alkaline Phosphatase 88 U/L (39-117)
--- OUTSIDE RECORDS SUMMARY | 2024-10-13 16:34 | XMS_ITS | Continuity of Care Document ---
Author Organization [facility] Address [address] [place] [address] [place] [address] Phone Care Team Providers Care Retaining Room Cutter Name Role Phone Provider, Conversion Unavailable Unavailable [...] Diagnoses Date Provider Providers Copied on Encounter [address] [place], [id number], [phone] [facility] No Information 4 Provider Conversion. . [address] [place], [id number], tel:[phone] [facility] No Information 2 Provider Conversion. . [address] [place], [id number], tel:[phone] [facility] No Information 2 Unidentified Provider. [address] [place] [address], [id number], . Family History Family Member Type Diagnosis [...]
[2024-10-13 16:37] LABS: Appearance Urine Clear; Color Urine Dark Yellow; Glucose Urine UA Negative (Negative); Leukocyte Esterase Urine Negative (Negative); Nitrite Urine Negative (Negative); Specific Gravity - Urine 1.025 (1.005-1.025); UMIC TRIGGER UACC YES; Urine Blood Negative (Negative); Urine Ketones 15 mg/dL (Negative); Urine Protein 30 (1+) mg/dL (Neg-Trace)
--- OUTSIDE RECORDS SUMMARY | 2024-10-13 16:38 | XMS_ITS | Continuity of Care Document ---
Author Organization [facility] Address [address] [place] [address] [place] [address] Phone Care Team Providers Care Chief Digital Media Officer Name Role Phone Provider, Conversion Unavailable Unavailable [...] Diagnoses Date Provider Providers Copied on Encounter [address] [place], [id number], [phone] [facility] No Information 4 Provider Conversion. . [address] [place], [id number], tel:[phone] [facility] No Information 2 Provider Conversion. . [address] [place], [id number], tel:[phone] [facility] No Information 2 Unidentified Provider. [address] [place] [address], [id number], . Family History Family Member Type Diagnosis Age At Onset Family H/O Problem (finding) FHX: Heart Disease, Uns pecified Payers Payer name Insurance type Covered republican ID Authoriza tion(s) No Information Social History [...]
[2024-10-13 16:45] LABS: Bacteria Urine None Seen (None Seen); RBC Urine 0-2 /HPF (0-2); Squamous Epithelial Cell Urine 0-2 /HPF (0-2); WBC Urine 0-5 /HPF (0-5)
--- NOTE | 2024-10-13 17:36 | PM.HPGS ---
History of Present Illness History of Present Illness Date of Service: 10/14/24 Chief complaint: GB pain Narrative: Rodger Verde is a 39 year old male with a longstanding history of recurrent biliary colic who presents here with a similar episode of right upper quadrant pain radiating around to his back. He states he has had extensive workup for this and was to be seen at an outside facility to meet with a surgeon and a few months' time from now and because of progression of symptoms could not wait for this. His symptoms of right upper quadrant pain as noted above which he has had in the past several times. He has no other GI issues or complaints. Tolerating diet. Regular bowel habits. Never been jaundiced before. Chart was reviewed and patient evaluated PMFSH Past Medical History Medical History PTSD (post-traumatic stress disorder) Anxiety and depression Methadone dependence Back pain Family History Family History Father No problems noted. Mother Anxiety Fibromyalgia Surgical History Surgical History H/O right wrist surgery S/P correction of deviated nasal septum History of appendectomy Social History Social History Household Members: None Housing: Apartment Do you presently have visiting nurse or other home services: No Patient Tobacco Use Status: Former Tobacco user Smoked in Last 30 Days: No e-Cigarette/Vaping Use: Never Used Use of substances other than those prescribed or required for medical reasons: Yes Substance Use Type: Marijuana Substance Use Frequency: Daily Last Used Substance: Just Prior to Admission Currently Displaying Signs/Symptoms of Drug Intoxication Withdrawal: No Any prior treatment program specific to substance use: No Have you been hit, kicked, punched, or otherwise hurt by someone within the past year? If so, by whom?: No Do you feel safe in your current relationship?: No Current Relationship Is there a partner from a previous relationship who is making you feel unsafe now?: No Are you made to feel afraid or neglected: No Advance Directives: No Advance Directives Information Provided: Yes Do you have a plan to hurt others: No Plan Recently lost weight without trying: No How much weight loss: Not applicable Eating poorly because of decreased appetite: No Nutrition screen score: 0 Nutrition Risks: No Nutritional Risk Poor oral hygiene: No service: Yes Current occupational status: unemployed Cognitive needs: No Hearing needs: No Vision needs: No Meds Allergies Allergy/AdvReac Type Severity Reaction Status Date / Time No Known Allergies Allergy Verified 10/13/24 14:33 [No Known Allergies*] Active Medications: Current Medications Acetaminophen (Acetaminophen 325 Mg Tablet) 650 mg PO Q6H PRN PRN Reason: Pain, Mild 1-3,fever,headache Calcium Carbonate (Calcium Carbonate 750 Mg Tab.Chew) 750 mg PO Q4H PRN PRN Reason: Heartburn Hydromorphone HCl (Hydromorphone Hcl 0.5 Mg/0.5 Ml Syringe) 0.5 mg IVPUSH Q4H PRN; Protocol PRN Reason: Pain, Severe (Pain Scale 7-10) Lactated Ringer's (Lr) 1,000 mls @ 100 mls/hr IVCONT .Q10H KIM Piperacillin Sod/Tazobactam (Sod 3.375 gm/ Sodium Chloride) 50 mls @ 100 mls/hr IV Q12H KIM Magnesium Hydroxide (Milk Of Magnesia 30 Ml Oral.Susp) 30 ml PO DAILY PRN PRN Reason: Constipation Melatonin (Melatonin 3 Mg Tablet) 6 mg PO BEDTIME PRN PRN Reason: Insomnia Ondansetron HCl (Ondansetron Hcl 4 Mg/2 Ml Vial) 4 mg IVPUSH Q8H PRN PRN Reason: Nausea and Vomiting Sodium Chloride (0.9 % Sodium Chloride Flush 3 Ml Syringe) 3 ml IVFLUSH QSHIFT [facility] Home Medications ?Medication ?Instructions ?Recorded ?Confirmed ?Last Taken ?Type sildenafil 100 mg tablet (Viagra) 100 mg PO DAILY PRN Erectile 08/05/23 10/13/24 Unknown History Dysfunction methadone 10 mg/mL oral concentrate 120 mg PO DAILY 10/13/24 Unknown History pantoprazole 40 mg tablet,delayed 80 mg PO BID@0630,1630 10/13/24 10/13/24 10/13/24 History release Physical Exam Vital Signs: Vital Signs: Last Vital Signs Temp 98.2 F 10/13/24 14:31 Pulse 101 H 10/13/24 14:31 Resp 20 10/13/24 14:31 BP 124/76 10/13/24 14:31 Pulse Ox 98 10/13/24 14:31 O2 Del Method Room Air 10/13/24 14:31 BMI result Body Mass Index 35.4 Const: Other: Patient in significant abdominal pain secondary to what appears to be gallbladder issues Chest: Other: Chest breath sounds bilaterally, HS 1 in 2 GI: Other: Marked right upper quadrant tenderness. Localized. No evidence of any other guarding with, rebound, rigidity. Results Results Labs: Short CBC 10/13/24 Range/Units 14:51 WBC 7.6 (4.8-10.8) X10*3/uL Hgb 13.7 L (14.0-18.0) g/dl Hct 44.9 (42.0-52.0) % Plt Count 313 (160-400) X10*3/uL BMP 10/13/24 14:51 Sodium 141 Potassium 5.3 H D Chloride 108 Carbon Dioxide 25 BUN 8 L Creatinine 1.35 Calcium 9.5 Liver Function 10/13/24 Range/Units 14:51 Total Bilirubin 0.7 (0.0-1.0) mg/dL Direct Bilirubin 0.2 (0.0-0.5) mg/dL AST 59 H (5-37) U/L ALT 31 (0-40) U/L Alkaline Phosphatase 88 (39-117) U/L Albumin 4.5 (3.5-5.0) g/dL Urine 10/13/24 Range/Units 16:29 Urine Color Dark Yellow Urine Appearance Clear Urine pH 6.0 (5.0-9.0) Ur Specific [place] 1.025 (1.005-1.025) Urine Protein 30 (1+) H (Neg-Trace) mg/dL Urine Glucose (UA) Negative (Negative) mg/dL Assessment and Plan (1) Symptomatic cholelithiasis: Status: Acute (2) Abdominal pain, RUQ: Status: Acute Plan Ultrasound demonstrates cholelithiasis. Positive sonographic Cerna sign. LFTs within normal limits. Current plan is from with the patient, to receive IV antibiotics, and will be an add on for laparoscopic possible open cholecystectomy tomorrow. Risks, benefits, alternatives of procedure were extensively reviewed with the patient and included but not limited to bleeding, infection, recurrence of symptoms, numbness, pain, scarring, bowel or bile duct injury or leak and the patient wishes to proceed. All questions answered. Consent signed. Quality Stroke Does the patient have a stroke diagnosis?: No VTE Prior VTE?: No VTE Risk Level:: Surgical - low VTE Device Contraindication: N/A - Device Ordered VTE Drug Contraindication: Treatment Not Indicated Procedures Date of Service Date of Service: 10/14/24
[2024-10-13] MEDS: Lactated Ringers 1,000 ML 100 ML IVCONT (17:42)
[2024-10-13] MEDS: Piperacillin Sodium/Tazobactam 3.375 GM in 0.9 % Sodium Chloride 50 ML IV ×2 (18:23→23:04)
[2024-10-13] MEDS: HYDROmorphone HCl 0.5 MG/0.5 ML SYRINGE IVPUSH (18:28)
[2024-10-13 18:39] VITALS: BP 131/71; PULSE 88; RESP 18; TEMP 37.1; O2SAT 98
--- NOTE | 2024-10-13 18:55 | PHA.MEDREC ---
Addendum entered by Melissa Gomez RPh 10/13/24 19:03: reviewed by [facility]. Original Note: Pharmacy Consult ? Medication Reconciliation Pharmacy has completed the medication reconciliation. Spoewith patient and he was able to confirm his medications. Patient confirmed his Methadone 120mg and confirmed he takes it once daily and states he got it this morning from a methadone clinic in [place]. He confirmed he his Pantoprazole 40mg tab 2 tabs in the morning and night per his GI Dr and stated that they found ulcers, cysts and polyps and the GI Dr increased his dose to see if that would help and the patient stated it seems to be helping him since taking it like that. He confirmed he the Pantoprazole and Methadone this morning.
[2024-10-13 20:21] VITALS: BP 115/61; PULSE 62; RESP 16; TEMP 36.8; O2SAT 96
[2024-10-13 20:35] VITALS: BP 127/66; PULSE 70; RESP 17; TEMP 36.1; TEMP 36.2; O2SAT 95
[2024-10-13 20:57] VITALS: BMI 33.8
[2024-10-13] MEDS: HYDROmorphone HCl 0.5 MG/0.5 ML SYRINGE 1 MG IVPUSH (21:14)
[2024-10-13] MEDS: 0.9 % Sodium Chloride Flush 3 ML SYRINGE IVFLUSH (23:04)
[2024-10-14] VITALS (19 sets, daily range): BP systolic 128–191; BP diastolic 65–112; PULSE 54–75; RESP 12–18; TEMP 36.8–38; O2SAT 94–100
[2024-10-14] MEDS: Omeprazole 40 MG CAPSULE.DR PO ×2 (03:20→18:14)
[2024-10-14] MEDS: HYDROmorphone HCl 0.5 MG/0.5 ML SYRINGE 1 MG IVPUSH ×6 (03:22→23:54)
[2024-10-14] MEDS: Lactated Ringers 1,000 ML 100 ML IVCONT ×2 (03:24→16:22)
[2024-10-14] MEDS: Piperacillin Sodium/Tazobactam 3.375 GM in 0.9 % Sodium Chloride 50 ML IV ×4 (05:29→23:57)
[2024-10-14] MEDS: ALPRAZolam 0.5 MG TABLET 1 MG PO ×2 (05:59→18:46)
[2024-10-14 12:42] LABS: Anion Gap 16 (12-20); Blood Urea Nitrogen 6 mg/dL (9-16); Carbon Dioxide 18 mmol/L (22-29); Chloride 114 mmol/L (96-108); Creatinine Clr Calc Pharmacy 111.7; Estimated Glomerular Filt Rate > 60; Glucose Random 97 mg/dL (60-115); Potassium 4.8 mmol/L (3.3-5.1); Sodium 143 mmol/L (135-145)
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
--- NOTE | 2024-10-14 12:55 | MHC.CM.PN ---
Addendum entered by Saritha Aguilar RN 10/14/24 15:27: Patient still off unit, in OR. Will reattempt CM assessment tomorrow. Original Note: CM attempted CM assessment x2. Patient off unit. Will meet w/ patient upon return.
--- NOTE | 2024-10-14 14:15 | P.OP_ITS ---
Operative Note Operative Note Date of Service: 10/14/24 Narrative: Preoperative diagnosis: [] Recurrent biliary colic Postop diagnosis: [] The same Procedure [] laparoscopic cholecystectomy Surgeon: [] Nahid [employer] Truck Driver: [] Type of Anesthesia: [] General Indication for surgery: [] Right upper quadrant pain. History of recurrent biliary colic. Positive sonographic Cerna's sign. Intraoperative findings demonstrated gallbladder which was edematous and significant omental adhesions to it. Intrahepatic gallbladder. Findings: [] Patient brought to the operating room, placed on operative table in supine position, after an adequate level general anesthesia was induced, the patient's abdomen is prepped and draped in usual sterile fashion using a supraumbilical curvilinear incision, Young technique was used to insufflate abdominal cavity to 15 mm of CO2. Upper midline and right subcostal ports were placed under direct laparoscopic view, and the patient placed in reverse Trendelenburg position, tilted to the left. Dense omental adhesions were swept off the gallbladder with the hilum was approached. Cystic artery and cystic duct were each identified, circumferentially skeletonized, traced directly into the gallbladder and critical view obtained. Each was clipped proximally x2, distally x1, and transected. Gallbladder was then cauterized in the gallbladder fossa using Bovie. Specimen placed in an Endo-Catch bag, and retrieved through the umbilical port. Abdominal cavity was copiously irrigated and secured hemostasis. All ports removed under direct laparoscopic view. Wounds were closed in the following manner ;umbilical wound has fascia reapproximated using interrupted 0 Vicryl sutures. Skin wounds were closed using interrupted inverted dermal 4-0 Vicryl sutures followed by Steri-Strips and sterile dressings. Each wound was infiltrated 0.5% Marcaine/1% lidocaine. Sponge, needle, and instrument counts were reported correct. Patient tolerated the procedure well and emerged from anesthesia stable condition. EBL minimal
[2024-10-14] MEDS: HYDROmorphone HCl 0.5 MG/0.5 ML SYRINGE 0.25 MG IVPUSH ×2 (14:25→14:30)
[2024-10-14] MEDS: HYDROmorphone HCl 1 MG/ML SYRINGE IVPUSH ×2 (14:35→14:40)
[2024-10-14] MEDS: LORazepam 2 MG/ML VIAL 1 MG IVPUSH ×2 (14:40→14:50)
[2024-10-14] MEDS: Haloperidol Lactate 5 MG/ML VIAL 1 MG IVPUSH (14:40)
[2024-10-14] MEDS: HYDROmorphone HCl 2 MG/ML VIAL IVPUSH (14:50)
[2024-10-14] MEDS: 0.9 % Sodium Chloride Flush 3 ML SYRINGE IVFLUSH (16:23)
--- NOTE | 2024-10-14 19:08 | PC.NURSE ---
Pt c/o 10/10 pain and very anxious. IV Dilaudid and po xanax given with pending effect. Pt voided in urinal DTV#[id number]. Ambulated in room. Tolerated clear liquids, will advance diet per MD order
[2024-10-14] MEDS: Acetaminophen 1,000 MG/100 ML PIGGYBACK 400 MG IV (20:30)
[2024-10-15] MEDS: Melatonin 3 MG TABLET 6 MG PO (00:06)
--- NOTE | 2024-10-15 03:06 | PC.NURSE ---
Pt seen on bed alert and oriented, at 2010 pt c/o 19/07 abd pain, abd is soft, tender on surgical site, , no nausea, tolerated clear lig diet, last dilaudid was given at 191, pt claimed short time effect of the med, Dr. Baudilio Goldstein was made aware, additional Dilaudid 1 mg IV given, Ofirmev 1000 mg IV every 6hr given, pt verbalized relief after.
[2024-10-15] MEDS: Lactated Ringers 1,000 ML 100 ML IVCONT (03:16)
[2024-10-15] MEDS: Acetaminophen 1,000 MG/100 ML PIGGYBACK 400 MG IV ×2 (03:17→08:28)
[2024-10-15 03:18] VITALS: BP 152/67; PULSE 63; RESP 18; TEMP 37.1; O2SAT 93
[2024-10-15] MEDS: HYDROmorphone HCl 0.5 MG/0.5 ML SYRINGE 1 MG IVPUSH ×2 (04:20→08:26)
[2024-10-15] MEDS: Piperacillin Sodium/Tazobactam 3.375 GM in 0.9 % Sodium Chloride 50 ML IV (05:45)
[2024-10-15] MEDS: Omeprazole 40 MG CAPSULE.DR PO (05:46)
[2024-10-15 08:00] VITALS: BP 155/73; PULSE 63; RESP 16; TEMP 37.3; O2SAT 98
[2024-10-15] MEDS: ALPRAZolam 0.5 MG TABLET 1 MG PO (08:27)
--- NOTE | 2024-10-15 09:11 | PM.PNGS ---
Subjective Subjective Date of Service: 10/15/24 Interval history: Still asking for Dilaudid Tolerated peanut butter sandwich last night Asking to be discharged - he says he has a dog at home who has not been fed for 3 days Physical Exam Vital Signs: Vital Signs: Last Vital Signs Temp 99.2 F 10/15/24 08:00 Pulse 63 10/15/24 08:00 Resp 16 10/15/24 08:00 BP 155/73 H 10/15/24 08:00 Pulse Ox 98 10/15/24 08:00 O2 Del Method Room Air 10/15/24 08:00 O2 Flow Rate 2 10/14/24 15:50 FiO2 47 10/14/24 15:20 BMI result Body Mass Index 33.8 Const: General: no acute distress Eyes: Other: Anicteric Resp: Effort & Inspection: normal respiratory effort Cardio: Rate: regular rate GI: Other: Tender on incisions, dressings dry Palpation (GI): Soft to palpation, not firm and no guarding Objective Data Active Medications Acetaminophen (Acetaminophen 325 Mg Tablet) 650 mg PO Q6H PRN PRN Reason: Pain, Mild 1-3,fever,headache Alprazolam (Alprazolam 0.5 Mg Tablet) 1 mg PO BID PRN PRN Reason: Anxiety Last Admin: 10/15/24 08:27 Dose: 1 mg Documented By: ELIZABETH Calcium Carbonate (Calcium Carbonate 750 Mg Tab.Chew) 750 mg PO Q4H PRN PRN Reason: Heartburn Haloperidol Lactate (Haloperidol Lactate 5 Mg/Ml Vial) 1 mg IVPUSH ONCE PRN PRN Reason: Nausea and Vomiting Last Admin: 10/14/24 14:40 Dose: 1 mg Documented By: HEATHER Hydromorphone HCl (Hydromorphone Hcl 0.5 Mg/0.5 Ml Syringe) 1 mg IVPUSH Q4H PRN; Protocol PRN Reason: Pain, Severe (Pain Scale 7-10) Last Admin: 10/15/24 08:26 Dose: 1 mg Documented By: ELIZABETH Lactated Ringer's (Lr) 1,000 mls @ 100 mls/hr IVCONT .Q10H KIM Last Admin: 10/15/24 03:16 Dose: 100 mls/hr Documented By: MIK Piperacillin Sod/Tazobactam (Sod 3.375 gm/ Sodium Chloride) 50 mls @ 100 mls/hr IV Q6H [facility] Last Infusion: 10/15/24 06:21 Dose: Infused Documented By: MIK Acetaminophen (Ofirmev) 1,000 mg in 100 mls @ 400 mls/hr IV Q6H [facility] Last Admin: 10/15/24 08:28 Dose: 400 mls/hr Documented By: ELIZABETH Magnesium Hydroxide (Milk Of Magnesia 30 Ml Oral.Susp) 30 ml PO DAILY PRN PRN Reason: Constipation Melatonin (Melatonin 3 Mg Tablet) 6 mg PO BEDTIME PRN PRN Reason: Insomnia Last Admin: 10/15/24 00:06 Dose: 6 mg Documented By: MIK Naloxone HCl (Naloxone Hcl 0.4 Mg/Ml Vial) 0.04 mg IVPUSH Q5M PRN PRN Reason: Excessive sedation or RR < 8 Omeprazole (Omeprazole 40 Mg Capsule.) 40 mg PO BID@0630,1630 [facility] Last Admin: 10/15/24 05:46 Dose: 40 mg Documented By: MIK Ondansetron HCl (Ondansetron Hcl 4 Mg/2 Ml Vial) 4 mg IVPUSH Q8H PRN PRN Reason: Nausea and Vomiting Last Admin: 10/13/24 23:04 Dose: 4 mg Documented By: KUSH Sodium Chloride (0.9 % Sodium Chloride Flush 3 Ml Syringe) 3 ml IVFLUSH QSHIFT [facility] Last Admin: 10/15/24 08:42 Dose: Not Given Documented By: ELIZABETH Non-Admin Reason: IV Running Labs 10/13/24 14:51 10/14/24 12:15 Labs: Laboratory Results - last 24 hr 10/14/24 12:15 Anion Gap 16 Estim Creat Clear Calc 111.7 Estimated GFR > 60 Random Glucose 97 Calcium 9.0 Microbiology Microbiology Results: Microbiology 10/13/24 16:54 Blood Culture - Preliminary Blood - Venous No growth after 24 hours. 10/13/24 14:51 Blood Culture - Preliminary Blood - Venous No growth after 24 hours. Procedures Date of Service Date of Service: 10/15/24 Progress Note: A&P Assessment and plan (1) Symptomatic cholelithiasis: Status: Acute Assessment and Plan: Status post laparoscopic cholecystectomy yesterday Still asking for IV pain meds He however insists on going home today because of his dog I explained to him that if he still has significant pain, I would not recommend going home. We will see how he does with diet as well as oral pain meds I will re-evaluate him later on today Encouraged ambulation and out of bed Time Spent With Patient Time: Total time managing care of this patient today ____ minutes. Quality Stroke Does the patient have a stroke diagnosis?: No VTE Prior VTE?: No VTE Risk Level:: Surgical - low VTE Device Contraindication: N/A - Device Ordered VTE Drug Contraindication: Treatment Not Indicated
--- NOTE | 2024-10-15 11:08 | MHC.CM.PN ---
pt lives alone is independent has no services dc plan home no services
--- NOTE | 2024-10-15 11:28 | PM.EVENT ---
Event Note Date of Service: 10/15/24 Event Note: seen again on ffup he feels much better has been ambulating has not needed IV pain meds looks well abd soft tolerating diet he says he is ready to be discharged instructions reinforced with pt Time Spent With Patient Time: Total time managing care of this patient today ____ minutes.
--- NOTE | 2024-10-15 11:48 | MHC.CM.PN ---
pt dcd home self care
--- NOTE | 2024-10-15 16:45 | P.DS_ITS ---
DS: Providers Provider Date of Service: 10/15/24 Date of admission: 10/13/24 17:23 Date of discharge: 10/15/24 Primary care physician: RENEE Melo Attending physician on admission: Franky Whitfield Attending physician on discharge: Baudilio Goldstein DS: Diagnosis Discharge Diagnosis (1) Symptomatic cholelithiasis: Status: Acute DS: Summary Hospital Course Hospital Course: HPI AT ADMISSION: Rodger Verde is a 39 year old male with a longstanding history of recurrent biliary colic who presents here with a similar episode of right upper quadrant pain radiating around to his back. He states he has had extensive workup for this and was to be seen at an outside facility to meet with a surgeon and a few months' time from now and because of progression of symptoms could not wait for this. His symptoms of right upper quadrant pain as noted above which he has had in the past several times. He has no other GI issues or complaints. Tolerating diet. Regular bowel habits. Never been jaundiced before. Chart was reviewed and patient evaluated HOSPITAL COURSE: The patient was admitted to the surgical service for further treatment of the acute cholecystitis. He elected to proceed with laparoscopic cholecystectomy, possible open. He was added onto the OR schedule for that day. On 10/14/24, a laparoscopic cholecystectomy was performed by Dr. Whitfield without complication. The patient tolerated the procedure well. He had an uncomplicated recovery course. On POD #1, he felt well and was tolerating a solid diet without nausea or vomiting, had good pain control and was ambulating without difficulty. He was hemodynamically stable. His abdomen was benign with appropriate post op tenderness and clean and intact dressings. He felt ready for discharge. He was discharged to home on 10/15/24 in stable condition. He is to follow up in the office in 1 week. Status at Discharge Functional status at discharge: independent ambulation Overall status at discharge: patient is progressing back to baseline Time Attestation Discharge Coordination Time (in mins): 30 Quality: Safe Use of Opioids Does Pt have an Active Cancer Diagnosis on the Problem List?: No Quality: Stroke Does the patient have a stroke diagnosis?: No Physical Exam Vital Signs: Vital Signs: Last Vital Signs Temp 99.2 F 10/15/24 08:00 Pulse 63 10/15/24 08:00 Resp 16 10/15/24 08:00 BP 155/73 H 10/15/24 08:00 Pulse Ox 98 10/15/24 08:00 O2 Del Method Room Air 10/15/24 08:00 O2 Flow Rate 2 10/14/24 15:50 FiO2 47 10/14/24 15:20 BMI result Body Mass Index 33.8 Const: General: comfortable, no acute distress and alert Resp: Effort & Inspection: normal respiratory effort GI: Inspection: No distended and Yes incision (dressings clean and intact) Palpation (GI): Soft to palpation Skin: General skin exam: no rashes or lesions noted DS: Data Data Completed and Pending Completed studies during hospitalization [Text1]: 10/14/24 13:50 Surgical [PTH] Routine Gallbladder, cholecystectomy: Chronic cholecystitis; cholelithiasis Discharge Plan Discharge Anticipated Discharge Date/Time: 10/15/24 14:14 Patient Disposition: Home, Self-Care Discharge Diagnosis: Recurrent biliary colic Referrals: Jerardo Burch FNP-BC [Primary Care Provider] - 1 Week Franky Whitfield MD [Physician] - 1 Week Discharge Medications: New ibuprofen 800 mg tablet 800 mg PO Q8H PRN (Reason: pain) Qty: 30 0RF Continued pantoprazole 40 mg tablet,delayed release (DR/EC) 80 mg PO BID@0630,1630 methadone 10 mg/mL Concentrate 120 mg PO DAILY sildenafil [Viagra] 100 mg tablet 100 mg PO DAILY PRN (Reason: Erectile Dysfunction) Rx Instructions: administer 30 minutes to 4 hours before activity alprazolam 1 mg tablet 1 mg PO BID PRN (Reason: anxiety) 30 Days Qty: 60 4RF Discharge Orders: Discharge Order (Routine); Ordered 10/15/24 Ordered By: Baudilio Goldstein Diet: Advance to usual diet Activity on Discharge: No heavy lifting Stand Alone Forms: Patient Portal Discharge page Print Language: Albanian Activity Restrictions/Additional Instructions: Ice to wound 20 minutes several times today and tomorrow. May shower in 2 days. Remove outside dressing only. Leave Steri-Strips intact. No strenuous activities Care Plan Goals: Convalescence from surgery Health Concerns: No new acute issues Plan of Treatment: Returned to baseline Assessment: Stable Discharge Date/Time: 10/15/24 12:39
--- NOTE | 2024-10-16 19:06 | HO.POSTANES ---
Post Anesthesia Evaluation Post Anesthesia Evaluation Date of Service: 10/16/24 Anesthesia: General Endotracheal-GETA Mental Status: Awake Pain Control: Satisfactory Nausea/Vomiting: None Hydration: Adequate Anesthesia-Related Issues: No Anes. Related Issues
== END 2024-10-15 12:39 | disposition home or self-care (01) | DRG 418 ==
LOC: HO.ED 17:16 → HO.EDOVER 17:33 → HO.S3 19:32
PROVIDERS: Anesthesiology; Physician Assistant; Admitting Provider Surgery; Emergency Provider Emergency Medicine; PCP Nurse Practitioner Family; Visit Provider Surgery
PROC: 0FT44ZZ Resection of Gallbladder, Percutaneous Endoscopic Approach (ICD-10-PCS; CPT 47562; principal; 2024-10-14 13:10)
DX: K80.12 Calculus of gallbladder with acute and chronic cholecystitis without obstruction (principal); F11.20 Opioid dependence, uncomplicated; F43.10 Post-traumatic stress disorder, unspecified; Z87.891 Personal history of nicotine dependence; Z79.899 Other long term (current) drug therapy
CPT/HCPCS: 36415; 76705; 80048; 80076; 81001; 83690; 83735; 85025; 85610; 87040; 88304; 93005; 99285; J0131; J1100; J1171; J1630; J2003; J2060; J2250; J2270; J2405; J2543; J2704; J2795; J3010; J7120

== ENCOUNTER → 2024-10-13 14:42 | Outpatient (BNV) | payer OTHER, SELFPAY | PROVIDERS: Admitting Provider Surgery; Emergency Provider Emergency Medicine; PCP Nurse Practitioner Family; Visit Provider Internal Medicine | DX: R07.9 Chest pain, unspecified (principal) | CPT/HCPCS: 93010 ==

== ENCOUNTER → 2024-10-13 14:43 | Outpatient (BNV) | payer OTHER, SELFPAY | PROVIDERS: Emergency Provider Emergency Medicine; PCP Nurse Practitioner Family; Visit Provider Radiology Diagnostic Radiology | DX: R10.11 Right upper quadrant pain (principal) | CPT/HCPCS: 76705 ==

== ENCOUNTER → 2024-10-13 17:23 | Outpatient (BNV) | payer OTHER, SELFPAY | PROVIDERS: Admitting Provider Surgery; Emergency Provider Emergency Medicine; PCP Nurse Practitioner Family; Visit Provider Surgery | DX: K80.20 Calculus of gallbladder without cholecystitis without obstruction (principal) | CPT/HCPCS: 47562; 99024; 99222; 99499 ==

== ENCOUNTER 2024-11-03 15:48 | Outpatient (AMB) | payer OTHER, SELFPAY ==
[2024-11-03 15:50] VITALS: BP 130/70; PULSE 83; RESP 16; TEMP 36.7; O2SAT 98; BMI 35.6
--- NOTE | 2024-11-03 15:50 | MHC.PC.OV ---
Vital Signs 11/03/24 15:50 Height 6 ft 2 in Weight 277 lb BMI 35.6 BP 130/70 Blood Pressure Location Rt brachial Position Sitting Respiration 16 Pulse 83 Pulse Source Pulse Oximeter Temp 98.1 F Temp Source Oral Pulse Oximetry (%) 98 Oxygen Delivery Method Room Air Intake Visit Reasons: s/p gallbladder removal 2 wk f/up Intake Note: pt is here for follow up, s/p gallbladder removal Accompanied by: Self / Same As Patient Allergies No Known Allergies [No Known Allergies*] Allergy (Verified 11/03/24 15:51) Tobacco use date assessed: 11/03/24 Dental Screening Dental Screen Date: 11/03/24 Did you have a dental visit in the last 12 months?: Yes Did you have a dental problem in the last 6 months where you did not have access to dental care?: No Was dental information given to patient?: Patient has dentist HPI s/p gallbladder removal 2 wk f/up HPI Details Chief Complaint Postoperative follow-up after cholecystectomy with no current concerns. History of Present Illness The patient is a 39-year-old male presenting for a follow-up after a cholecystectomy procedure. Initially scheduled closer to December, the surgery was brought forward due to severe gallbladder attacks. The surgery was successfully performed on October 14, 2024. The patient reports significant improvement in his condition postoperatively. He is tolerating a regular diet and has normal bowel movements without the presence of blood in the stool. He denies diarrhea, nausea, or vomiting. The surgical sites are free from discharge and appear to be healing appropriately. There are four laparoscopic sites with no signs of infection or tenderness when palpated. Social History Health Maintenance Review of Systems - Gastrointestinal: Denies diarrhea, nausea, vomiting, or blood in stool. Physical Exam General: Cooperative, healthy appearing, comfortable, no acute distress and well developed Orientation: Patient oriented x3 Limitations: No limitations Head: Normal to inspection Ears: Hearing grossly normal bilaterally Nose: Normal external nose present Face and sinus: Normal facial exam Eyes: Appearance normal, both eyes and all related structures Neck: Normal visual inspection and Yes full ROM Respiratory: Normal respiratory effort and able to speak in complete sentences. Clear to auscultation bilaterally Cardiovascular: Regular rate and rhythm. Normal S1 and S2 GI: Normal to inspection. Soft to palpation and nontender, lap sites without s/s of infection, healing well, +BSx4 Skin: No rashes or lesions noted Neuro: Patient oriented x3 Extremities: Normal to inspection Results Plan - Continue monitoring postoperative recovery closely. Patient was informed and verbally consented to the use of an ambient scribe for clinic note documentation during this visit. Discussion Notes I discussed with the patient the successful nature of the cholecystectomy and the positive progression of his recovery. We reviewed that there are no signs of infection or complications at the surgical sites, and that his gastrointestinal symptoms have resolved. I advised him to maintain his current dietary habits and report any new symptoms immediately for further evaluation. Follow-up care was not specifically scheduled during this visit. Patient Instructions - Continue with your current diet as tolerated. - Monitor for any symptoms such as fever, severe pain, or changes in bowel movements. - Contact our office if you experience any new or worsening symptoms. [facility] Medical History (Updated 11/03/24 @ 16:23 by Jerardo Burch [facility]) Sleep apnea Kidney cysts Hiatal hernia Esophagitis GERD (gastroesophageal reflux disease) Lung abnormality TBI (traumatic brain injury) PTSD (post-traumatic stress disorder) Anxiety and depression Methadone dependence Back pain Surgical History (Updated 11/03/24 @ 16:23 by Jerardo Burch [facility]) S/P cholecystectomy Hx of foot surgery History of back surgery H/O right wrist surgery S/P correction of deviated nasal septum History of appendectomy Family History Father No problems noted. Mother Anxiety Fibromyalgia Social History Household Members: None Housing: Apartment Do you presently have visiting nurse or other home services: No Patient Tobacco Use Status: Former Tobacco user e-Cigarette/Vaping Use: Never Used Substance Use Type: Marijuana service: Yes Current occupational status: unemployed Cognitive needs: No Hearing needs: No Vision needs: No Questionnaire PHQ-9 Over the last 2 weeks, how often have you been bothered by any of the following problems? 1. Little interest or pleasure in doing things: several days 2. Feeling down, depressed, or hopeless: not at all 3. Trouble falling or staying asleep, or sleeping too much: several days 4. Feeling tired or having little energy: several days 5. Poor appetite or overeating: several days 6. Feeling bad about yourself - or that you are a failure or have let yourself or your family down: not at all 7. Trouble concentrating on things, such as reading the newspaper or watching television: not at all 8. Moving or speaking so slowly that other people could have noticed. Or the opposite - being so fidgety or restless that you have been moving around a lot more than usual: not at all 9. Thoughts that you would be better off or of hurting yourself in some way: not at all Total score: 4 Depression Screening Interpretation: Negative Depression Screening Done: Yes 23586 - PHQ-9 Billing: Yes Source: Developed by Drs. Hang Wilson, Corazon Rajput, Hemant Mccurdy and colleagues, with an educational ana from [employer]. Thrive Questionnaire Date Thrive assessed: 11/03/24 I am a: Patient What is your living situation today?: I have a steady place to live Within the past 12 months, did the food you bought not last and you didn't have the money to get more?: I choose not to answer this question Within the past 12 months, did you worry whether your food would run out before you got money to buy more?: I choose not to answer this question Do you have trouble paying for medicines?: No Do you have trouble getting transportation to medical appointments?: No Do you have trouble paying your heating and electricity bill?: I choose not to answer this question Do you have trouble taking care of your child, family member or friend?: No Do you have trouble with day-to-day activities such as bathing, preparing meals, shopping, managing finances, etc.?: Yes Are you currently unemployed and looking for a job?: I choose not to answer this question Are you interested in more education?: I choose not to answer this question Please select the resources that you would like help with: Housing/Skilled Nursing, Utilities and Daily support Currently or been in a relationship where the following occur: No concerns reported THRIVE Score: 0 AUDIT C Alcohol Use Questionnaire (AUDIT-C) 1. How often do you have a drink containing alcohol?: Never 3. How often do you have six or more drinks on one occasion?: Never Total Score: 0 Score Reviewed/Action Taken: Yes HOLDEN-7 AMB Questionnaire HOLDEN-7 Date HOLDEN - 7 assessed: 11/03/24 Feeling nervous, anxious, or on edge: 1 = Several days Not being able to stop or control worryin = Several days Worrying too much about different things: 1 = Several days Trouble relaxin = Several days Being so restless that it is hard to sit still: 1 = Several days Becoming easily annoyed or irritable: 1 = Several days Feeling afraid as if something awful might happen: 0 = Not at all Total HOLDEN-7 score (0-4 normal; 5-9 mild; 10-14 moderate; 15-21 severe): 6 Source: Developed by Drs. Hang Wilson, Corazon Rajput, Hemant Mccurdy and colleagues, with an educational ana from [employer]. HOLDEN-7 Assessment Billing HOLDEN-7 Assessment Tool: HOLDEN-7 Assessment 18122 Physical exam (Primary Care) Vital Signs: Last Vital Signs Temp 98.1 F 11/03/24 15:50 Pulse 83 11/03/24 15:50 Resp 16 11/03/24 15:50 BP 130/70 11/03/24 15:50 Pulse Ox 98 11/03/24 15:50 Oxygen Delivery Method Room Air 11/03/24 15:50 BMI result Body Mass Index 35.6 Tobacco/Smoking Status: Tobacco use Status Tobacco use date assessed 11/03/24 11/03/24 15:51 Patient Tobacco Use Status Former Tobacco user 11/03/24 15:51 e-Cigarette/Vaping Use Never Used 11/03/24 15:51 PHQ-9: PHQ-9 Score PHQ-9: Total score 4 11/03/24 15:57 Depression Screening Interpretation: Negative Thrive Assessment: Date of Thrive Assessment Date Thrive assessed 11/03/24 11/03/24 15:51 Currently or been in a relationship where the following occur: No concerns reported Coding Level of Care Code Est Pt Level 3 (51904) Diagnoses S/P cholecystectomy Z90.49 Cholecystitis K81.9 Additional Codes HOLDEN-7 Assessment Billing - HOLDEN-7 Assessment Tool: HOLDEN-7 Assessment 22063 ([id number]) PHQ-9 - 74555 - PHQ-9 Billing: Yes ([id number]) Assessment & Plan Assessment & Plan (1) S/P cholecystectomy: Comment: 10/2024 Code(s): Z90.49 - Acquired absence of other specified parts of digestive tract Category: Medical (2) Cholecystitis: Code(s): K81.9 - Cholecystitis, unspecified Category: Medical Plan .
--- OUTSIDE RECORDS SUMMARY | 2024-11-03 19:23 | XMS_ITS | Continuity of Care Document ---
Author Organization [facility] Address [address] [place] [address] [place] [address] Phone Care Team Providers Care Inclusion Teacher Name Role Phone Provider, Conversion Unavailable Unavailable [...] Diagnoses Date Provider Providers Copied on Encounter [address] [place], [id number], [phone] [facility] No Information 4 Provider Conversion. . [address] [place], [id number], tel:[phone] [facility] No Information 2 Provider Conversion. . [address] [place], [id number], tel:[phone] [facility] No Information 2 Unidentified Provider. [address] [place] [address], [address], . Family History Family Member Type Diagnosis [...]
== END 2024-11-03 16:43 | disposition home or self-care (01) ==
PROVIDERS: PCP Nurse Practitioner Family; Visit Provider Nurse Practitioner Family
DX: Z90.49 Acquired absence of other specified parts of digestive tract (principal); K81.9 Cholecystitis, unspecified

== ENCOUNTER → 2024-11-03 15:48 | Outpatient (BNVA) | payer OTHER, SELFPAY | PROVIDERS: PCP Nurse Practitioner Family; Visit Provider Nurse Practitioner Family | DX: K81.9 Cholecystitis, unspecified (principal); Z90.49 Acquired absence of other specified parts of digestive tract | CPT/HCPCS: 96127; 99212 ==

== ENCOUNTER 2025-02-23 11:11 | Outpatient (AMB) | payer OTHER, SELFPAY ==
[2025-02-23 11:46] VITALS: BP 120/96; PULSE 91; TEMP 37.2; O2SAT 95
--- NOTE | 2025-02-23 11:46 | AM.OFFWIN_ITS ---
Intake Vital Signs 02/23/25 11:46 Weight 295 lb BP 120/96 H Blood Pressure Location Rt brachial Position Sitting Pulse 91 Pulse Source Pulse Oximeter Temp 98.9 F Temp Source Oral Pulse Oximetry (%) 95 Oxygen Delivery Method Room Air Intake Visit Reasons: EP persistent diarrhea Intake Note: Patient here for persistent diarrhea that has been present for about 4 months. states he had his gallbladder removed in october and since then he has had these issues. Patient Tobacco Use Status: Former Tobacco user Allergies No Known Allergies [No Known Allergies*] Allergy (Verified 02/23/25 11:51) Do you need a note to return to daycare/school/sports/work: No HPI HPI Comments History of Present Illness Details 40 y/o Male patient who presents to the walk in clinic with c/o persistent diarrhea that has been present for about 4 months. He is S/P Cholecystectomy 10/2024 - and symptoms started then. He has been having frequent Episodes every few hours and feels like he is developing Hemorrhoids. Pt asking for medications to lower Bile Acid in the blood. I informed Patient that he will need GI to prescribe does type medications. Pt got upset and stated I will follow up with my GI Doctor . Pt does Follow with GI. [facility] Medical History (Updated 02/23/25 @ 13:29 by Patt Brandon NP) Diarrhea Sleep apnea Kidney cysts Hiatal hernia Esophagitis GERD (gastroesophageal reflux disease) Lung abnormality TBI (traumatic brain injury) PTSD (post-traumatic stress disorder) Anxiety and depression Methadone dependence Back pain Surgical History (Updated 11/03/24 @ 16:23 by Jerardo Burch [facility]) S/P cholecystectomy Hx of foot surgery History of back surgery H/O right wrist surgery S/P correction of deviated nasal septum History of appendectomy Family History Father No problems noted. Mother Anxiety Fibromyalgia Social History Household Members: None Housing: Apartment Do you presently have visiting nurse or other home services: No Patient Tobacco Use Status: Former Tobacco user e-Cigarette/Vaping Use: Never Used Substance Use Type: Marijuana service: Yes Current occupational status: unemployed Cognitive needs: No Hearing needs: No Vision needs: No Review of Systems Const All systems reviewed & are unremarkable except as noted in HPI and below Physical Exam Vital Signs: Last Vital Signs Temp 98.9 F 02/23/25 11:46 Pulse 91 02/23/25 11:46 BP 120/96 H 02/23/25 11:46 Pulse Ox 95 02/23/25 11:46 Oxygen Delivery Method Room Air 02/23/25 11:46 Const General: no acute distress Nutritional Appearance: obese Orientation/consciousness: patient oriented x3 Neuro General: patient oriented x3, gait normal and moves all extremities Psych Speech and movement: Clear speech present and Psychomotor agitation in speech present Affect: Anxious affect present and Indifferent affect present Assessment & Plan Assessment & Plan (1) Diarrhea: Code(s): R19.7 - Diarrhea, unspecified Qualifiers: Diarrhea type: unspecified type Qualified Code(s): R19.7 - Diarrhea, unspecified Plan: F/U with GI Specialist - Pt was going to call and schedule an appointment. F/U With PCP. Coding Level of Care Code Est Pt Level 4 (86251) Diagnoses Diarrhea, unspecified type R19.7 Diarrhea type: unspecified type Time Spent (min) 20
--- OUTSIDE RECORDS SUMMARY | 2025-02-23 11:47 | XMS_ITS ---
Author Name [facility] Organization Unknown Encounters Encounter Type Encounter Reason Primary Diagnosis Location Date Ambulatory Perineural cyst Perineural cyst [facility] 07/21/2023
--- OUTSIDE RECORDS SUMMARY | 2025-02-23 11:47 | XMS_ITS | Continuity of Care Document ---
Author Organization [facility] Address [address] [place] [address] [place] [address] Phone Care Team Providers Care Rn Immunology Name Role Phone Provider, Conversion Unavailable Unavailable [...] Diagnoses Date Provider Providers Copied on Encounter [address] [place], [id number], [phone] [facility] No Information 4 Provider Conversion. . [address] [place], [id number], tel:[phone] [facility] No Information 2 Provider Conversion. . [address] [place], [id number], tel:[phone] [facility] No Information 2 Unidentified Provider. [address] [place] [address], [address], . Family History Family Member Type Diagnosis [...]
== END 2025-02-23 12:39 | disposition home or self-care (01) ==
PROVIDERS: PCP Nurse Practitioner Family; Visit Provider Nurse Practitioner Family
DX: R19.7 Diarrhea, unspecified (principal)

== ENCOUNTER → 2025-02-23 11:11 | Outpatient (BNVA) | payer OTHER, SELFPAY | PROVIDERS: PCP Nurse Practitioner Family; Visit Provider Nurse Practitioner Family | DX: R19.7 Diarrhea, unspecified (principal) | CPT/HCPCS: 99212 ==

== ENCOUNTER 2025-06-08 16:10 | Emergency (ER) | payer OTHER, SELFPAY ==
--- OUTSIDE RECORDS SUMMARY | 2014-03-15 18:19 | XMS_ITS | Continuity of Care Document ---
Author Organization [facility] Address [address] [place] [address] [place] [address] Phone Care Team Providers [employer] Name Role Phone Provider, Conversion Unavailable Unavailable Allergies, Adverse Reactions, Alerts Substance Reaction Status Criticality No Known Drug Allergies Active No I nformation Medications Medication Instructions Dosage Effective Dates (start - stop) Status Comments Ultram ER 100 mg tablet,extended release MG - Active Advance Directives Directive Yes / No Effective Date File Name No Information Encounters Encounter Description Practice Location Reason(s) For Visit Diagnoses Date Provider Providers Copied on Encounter [address] [place], [id number], [phone] [facility] No Information 4 Provider Conversion. . [address] [place], [id number], tel:[phone] [facility] No Information 2 Provider Conversion. . [address] [place], [id number], tel:[phone] [facility] No Information 2 Unidentified Provider. [address] [place] [address], [id number], . Family History Family Member Type Diagnosis Age At Onset Family H/O Problem (finding) FHX: Heart Disease, Uns pecified Payers Payer name Insurance type Covered constitution party ID Authoriza tion(s) No Information Social History Type Description Quantity Date Captured Comments Sex Male Smoking Status No Information Chief Complaint And Reason For Visit No Information Reason For Referral Reason For Referral No Information History Of Present Illness Encounter Date Complaint History Of Prese nt Illness No Information Functional Status Date Functional Assessmen t No Information Instructions Date Instruction Additional Infor mation No Information Assessments Type Assessment Date No Information Patient Care Teams Name Effective Dates (start - stop) Status Members No Information
[2025-06-08 16:49] VITALS: BP 170/102; PULSE 125; O2SAT 96
[2025-06-08 16:59] VITALS: BP 138/71; PULSE 100; RESP 18; TEMP 36.3; O2SAT 95; BMI 37.8
[2025-06-08 17:04] VITALS: BP 138/71; PULSE 100; RESP 18; TEMP 36.3; O2SAT 95
--- OUTSIDE RECORDS SUMMARY | 2025-06-08 17:16 | XMS_ITS ---
Author Name [facility] Organization Unknown Encounters Encounter Type Encounter Reason Primary Diagnosis Location Date Ambulatory Perineural cyst Perineural cyst [facility] 07/21/2023
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
[2025-06-08 18:25] VITALS: BP 138/71; PULSE 100; RESP 18; TEMP 36.3; O2SAT 95
== END 2025-06-08 18:26 | disposition home or self-care (01) ==
PROVIDERS: Emergency Provider Emergency Medicine; PCP Nurse Practitioner Family
DX: S39.92XA Unspecified injury of lower back, initial encounter (principal); G47.33 Obstructive sleep apnea (adult) (pediatric); V43.52XA Car driver injured in collision with other type car in traffic accident, initial encounter; Y93.9 Activity, unspecified; Y92.410 Unspecified street and highway as the place of occurrence of the external cause; Y99.2 Volunteer activity; Z79.899 Other long term (current) drug therapy
CPT/HCPCS: 99282; 99284